=== PATIENT | male | born 1965 | race Caucasian/White ===

== ENCOUNTER 2025-04-24 13:30 | Emergency (ER) | payer SELFPAY ==
[~2025-04-24] VITALS: Ht 180.3 cm; Wt 79.4 kg
== END 2025-04-24 16:13 | disposition home or self-care (01) ==
LOC: ED 13:30
DX: S46.911A Strain of unspecified muscle, fascia and tendon at shoulder and upper arm level, right arm, initial encounter (principal); X50.0XXA Overexertion from strenuous movement or load, initial encounter; Y93.89 Activity, other specified; Y92.89 Other specified places as the place of occurrence of the external cause; Y99.8 Other external cause status